=== PATIENT | male | born 1960 | race Caucasian/White ===

== ENCOUNTER → 2022-09-20 11:04 | Outpatient (REF) | payer BC, SELFPAY ==
[2022-09-20 12:40] LABS: ALT (SGPT) 24 U/L (0-50); AST (SGOT) 21 U/L (17-59); Albumin 4.3 g/dl (3.5-5.0); Alkaline Phosphatase 98 U/L (38-126); Blood Urea Nitrogen 23 mg/dl (9-20); Calcium 9.4 mg/dl (8.4-10.2); Carbon Dioxide 26 mmol/L (22-30); Chloride 105 mmol/L (98-107); Glomerular Filtration Rate > 60.0; Glucose 157 mg/dl (65-99); HDL Cholesterol 50 mg/dl; LDL Cholesterol, Calculated 132 mg/dl; Potassium 4.5 mmol/L (3.5-5.1); Sodium 141 mmol/L (135-145); Total Bilirubin 0.5 mg/dl (0.2-1.3); Total Cholesterol 223 mg/dl (50-199); Total Protein 7.3 g/dl (6.3-8.2); Triglyceride 208 mg/dl (10-149); Very Low Density Lipoprotein 41 mg/dl (0-30)
[2022-09-20 14:40] LABS: Glycohemoglobin (HgbA1c) 8.4 % (4.0-5.6)
[2022-09-21 14:53] LABS: PSA Total 0.4 ng/mL (0.0-4.0)
== END ==
LOC: REG 11:04
PROVIDERS: ATTENDING PHYSICIAN Family Medicine; FAMILY PHYSICIAN Nurse Practitioner
DX: I25.10 Atherosclerotic heart disease of native coronary artery without angina pectoris (principal); I21.4 Non-ST elevation (NSTEMI) myocardial infarction; I25.708 Atherosclerosis of coronary artery bypass graft(s), unspecified, with other forms of angina pectoris; I10 Essential (primary) hypertension; E78.5 Hyperlipidemia, unspecified; E11.59 Type 2 diabetes mellitus with other circulatory complications; N93.9 Abnormal uterine and vaginal bleeding, unspecified
CPT/HCPCS: 36415; 80053; 80061; 83036; 84153; 84154

== ENCOUNTER 2023-11-29 17:09 | Inpatient (IN) | payer BC, SELFPAY ==
[2023-11-29] VITALS (15 sets, daily range): BP systolic 84–126; BP diastolic 62–94; BMI 36.0; BMI 36.9
[2023-11-29 14:10] LABS: % Eosinophils 1.4 % (0-6); % Immature Granulocytes 0.3 % (0-0.5); % Lymphocytes 15.3 % (20.5-51.1); % Monocytes 7.5 % (1.7-9.3); % Neutrophils 74.5 % (42.2-75.2); Absolute Basophils 0.1 10^3/uL (0-0.2); Absolute Eosinophils 0.1 10^3/uL (0-0.7); Absolute Lymphocytes 1.3 10^3/uL (1.2-3.4); Absolute Monocytes 0.7 10^3/uL (0.1-0.6); Absolute Neutrophils 6.5 10^3/uL (1.4-6.5); Hematocrit 37.7 % (39.0-52.0); Hemoglobin 12.6 g/dL (13.0-18.0); Mean Corp Hgb Conc. 33.4 g/dL (33.0-37.0); Mean Corpuscular Volume 86.7 fL (80.0-94.0); Mean Platelet Volume 11.1 fL (7.4-10.4); Nucleated Red Blood Cells % 0 % (-); Platelet Count 184 10^3/uL (130-400); Red Blood Cell Count 4.35 10^6/uL (4.70-6.10); Red Cell Dist. Width 14.6 % (11.5-14.5); White Blood Cell Count 8.7 10^3/uL (4.8-10.8)
[2023-11-29 14:15] LABS: INR 1.16; PT 14.8 Sec (11.4-14.6)
[2023-11-29 14:22] LABS: ALT (SGPT) 20 U/L (0-50); AST (SGOT) 23 U/L (17-59); Albumin 4.5 g/dl (3.5-5.0); Alkaline Phosphatase 78 U/L (38-126); Blood Urea Nitrogen 26 mg/dl (9-20); Calcium 9.7 mg/dl (8.4-10.2); Carbon Dioxide 26 mmol/L (22-30); Chloride 102 mmol/L (98-107); Glucose 132 mg/dl (70-99); Potassium 4.8 mmol/L (3.5-5.1); Sodium 139 mmol/L (135-145); Total Bilirubin 0.5 mg/dl (0.2-1.3); Total Protein 7.2 g/dl (6.3-8.2); eGFR > 60.00
[2023-11-29 14:33] LABS: Troponin I 0.095 ng/ml
--- NOTE | 2023-11-29 14:54 | ED.GENMED ---
History of Present Illness
General
Chief Complaint: Chest Pain
Time Seen by Provider: 11/29/23 14:39
Travel History
Have you had any contact with someone who has COVID-19?: No
Do you have any symptoms of coronavirus? Fever > 100 degrees, chills, cough, shortness of breath, sore throat, loss of taste or smell, muscle aches, or headache?: No
History of Present Illness
History of Present Illness:
62-year-old male with extensive history of coronary artery disease and complex coronary anatomy presents to the emergency department for evaluation of chest pain that developed initially yesterday but worsened today while doing yard work. Describes
as a pressure radiating to the right arm that is somewhat comparable to his past bouts of angina but not as severe. Patient has had numerous cardiac stents and CABG x 4 in 2004 with subsequent bypass and in-stent stenosis, most recently he
underwent cardiac cath at this facility in January 2023 and due to the complexity of his restenosis was referred to the emergency [place] where he underwent a repeat CABG x 2. He states he has been doing quite well since that surgery last summer
and has not required any nitroglycerin however did have to use it multiple times today. No fevers, chills, shortness of breath. He has been compliant with all of his home medications
Past History
Past History
ED Past Medical History: CAD (CABG, multiple stents (up to 14)), HTN, Hypercholesterolemia, NIDDM, MO and Other (Pulmonary embolus with IVC filter 2007)
ED Past Surgical History: Cardiac (CABG x4 2004, multiple PCI last occurring October 2018), Orthopedic and Other (IVC filter 2007)
Social History
Tobacco: Smoker
Alcohol: Occasional
Drug: None
Personal:
Living: with family
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
Family History
Family History: CAD
Review of Systems
Review of Systems
Allergies reviewed?: Yes
All Other Systems: ROS reviewed and negative except as documented in HPI and ROS
Phy Exam
Physical Exam
Physical Exam:
GEN: Well appearing, NAD, WDWN
HEENT: Oral mucosa moist, no scleral icterus
Cardiac: Regular rate and rhythm, no murmurs
Lung: No respiratory distress, no tachypnea, lungs clear to auscultation bilaterally
MSK: No gross deformity or injuries
Skin: Good color, no pallor or jaundice, no rashes
Neuro: AO x3, moves all extremities freely
Psych: Calm, cooperative
Scores
Heart Score for Chest Pain Patients
STEMI patient?: No
History: Highly Suspicious
ECG: Normal
Age: >45 - <65 years
Risk Factors: >/= 3 Risk Factors or History of CAD
Troponin: >/= 3 x Normal Limit
Heart Score for Chest Pain Patients: 7
Heart Score Risk: 72.7 % MACE over next 6 weeks
Course
Orders/Labs/Results
Orders:
Orders
11/29/23 13:39
Electrocardiogram (*1) Urgent
Reason for Study: Chest Pain
EKG- Treatment ONCE
11/29/23 13:54
Complete Blood Count/With Diff Urgent
Comprehensive Metabolic Panel Urgent
Prothrombin Time Urgent
Troponin I Urgent
11/29/23 14:50
Aspirin Chewable [Low Strength Aspirin] 243 mg PO NOW STA
Morphine Sulfate 4 mg IV NOW STA
11/29/23 15:00
Nitroglycerin 100 mg/250 ml [Nitroglycerin Premix] 100 mg in 250 ml IV PER PROTOCOL
Initial dose in mcg/min, then titrate:: 10
Titrate to keep:: Chest Pain Free
Titrate by mcg/min:: 5 mcg/min, may increase by 10 mcg/min if dose > 20 mcg/min
Frequency of titrations (minutes):: every 3-5 minutes
Maximum dose in mcg/min:: 200
Begin to taper infusion when:: Remained at goal for 2hrs
Taper by mcg/min:: 5 mcg/min
Frequency of taper (minutes) if patient maintains goal:: 30
Taper to off?: Yes
If infusion off & no longer maintaining goal:: Contact Provider
11/29/23 15:34
PTT Urgent
Comment: Obtain baseline before beginning heparin infusion if not already collected
Heparin 4,000 units IV NOW STA
Pharmacy Request to Place See Dose Instructions PO NOW STA
Discontinue all Active Warfarin orders?: Yes
Nursing to Place Non Medication Order As Directed
Physician Order: PTT 6 hours after initial start of Heparin infusion
CR Chest Portable - 1 View Urgent
Comment:
Reason For Exam: chest pain
Reason Study Needs to be Portable: Other
11/29/23 15:45
Heparin 21927 Units/250 ml 25,000 units in 250 ml IV PER PROTOCOL
Weight to be used for heparin protocol in kilograms (kg):: 117.1
Protocol:: Cardiac Tx/Acute Coronary
PTT Goal Range to be used:: PTT 73 to 111 seconds
Order type:: Initial
INITIAL Infusion Dose (UNITS/KG/hr) & then follow protocol:: 15 units/kg/hr
Infusion Dose in UNITS/hr & then follow protocol (UNITS/hr):: 1,500
INFUSION RATE in mL/hr & then follow protocol (mL/hr):: 15
PTT less than or equal to 64 seconds:: Increase rate by 200 units/hr (+ 2 mL/hr)
PTT 64.1 to 72.9 seconds:: Increase rate by 100 units/hr (+ 1 mL/hr)
PTT 73 to 111 seconds:: Target Range. No change in rate.
PTT 111.1 to 130.9 seconds:: Decrease rate by 100 units/hr (- 1 mL/hr)
PTT 131 to 199.9 seconds:: HOLD for 1 hr. Then decrease rate by 200 units/hr (- 2 mL/hr)
PTT greater than or equal to 200 seconds:: HOLD for 2 hrs & Notify Provider. Then decrease by 200 units/hr (-
2 mL/hr)
Lab follow-up:: Each change, PTT q6h until 2 consecutive are therapeutic. Then PTT
daily.
11/29/23 16:[address] See Dose Instructions IV DIRECTED
Abnormal Lab Results
11/29/23
13:54
RBC 4.35 L 10^6/uL
(4.70-6.10)
Hgb 12.6 L g/dL
(13.0-18.0)
Hct 37.7 L %
(39.0-52.0)
RDW 14.6 H %
(11.5-14.5)
MPV 11.1 H fL
(7.4-10.4)
Absolute Monos (auto) 0.7 H 10^3/uL
(0.1-0.6)
Lymphocytes % 15.3 L %
(20.5-51.1)
PT 14.8 H Sec
(11.4-14.6)
BUN 26 H mg/dl
(9-20)
Glucose 132 H mg/dl
(70-99)
Troponin I 0.095 H* ng/ml
11/29/23 13:54
11/29/23 13:54
Vital Signs
Initial and Last Documented VS:
Initial Vital Signs
Temp Pulse Resp BP Pulse Ox
98.1 F 79 18 115/84 98
11/29/23 13:40 11/29/23 13:40 11/29/23 13:40 11/29/23 13:40 11/29/23 13:40
Last Documented Vital Signs
Temp Pulse Resp BP Pulse Ox
98.1 F 74 23 126/90 98
11/29/23 13:40 11/29/23 15:15 11/29/23 15:15 11/29/23 15:05 11/29/23 13:40
MDM/Problems Addressed
MDM/Problems Addressed:
Cardiology was consulted for emergent evaluation due to the patient's complex coronary history, recommend admission to the hospitalist service for cardiac intervention tomorrow morning, patient remained stable on nitroglycerin and heparin drips with
improving chest symptoms
Comment
Comment:
EKG independently interpreted by me shows normal sinus rhythm at a rate of 77 with no ischemic changes, chest x-ray independently interpreted by me shows no acute cardiopulmonary disease
*Critical Care Note
Total Time (30-74mins, 75-104mins- exclusive of procedures): 30 minutes
comment:
Critical care time: 30 minutes
Critical care time was exclusive of: Separately billable procedures, treating other patients, and teaching time
Critical care was necessary to treat or prevent imminent or life-threatening deterioration of the following conditions: NSTEMI
Critical care time spent personally by me on the following activities:
[x] Review of old charts
[x] Obtaining history from patient or surrogate
[x] Ordering and review of the laboratory studies
[x] Ordering and review of radiographic studies
[x] Ordering and performing treatments and interventions
[x] Patient patient's response to treatment
[x] Development of treatment plan with patient or surrogate
ED Attending Note
-
Portions of this chart may have been created with voice recognition software.� Occasional wrong word or��sound alike� substitutions may have occurred due to the inherent limitations of voice recognition software.
Discharge Plan
Departure
Patient Disposition: Admit
Date of Disposition: 11/29/23
Time of Disposition: 16:42
Admit to: IVU
Presentation/result/management discussed w/ accepting MD/DO: Hospitalist
Discharge Problem:
Non-ST elevation MO (NSTEMI)
Prescriptions:
No Action
clopidogrel 75 MG tablet
75 mg PO DAILY Qty: 30 11RF
atorvastatin 80 MG tablet
80 mg PO DAILY
aspirin 81 MG tablet,chewable
81 mg PO DAILY Qty: 30 3RF
therapeutic multivitamin Tablet
1 tab PO DAILY
omeprazole 20 mg Tablet,Delayed Release (Dr/Ec)
20 mg PO DAILY
metformin 500 MG tablet
1,000 mg PO BID@0800,1700
ezetimibe 10 MG tablet
10 mg PO HS
amlodipine 5 mg tablet
5 mg PO DAILY
insulin glargine [Lantus U-100 Insulin] 100 unit/mL Solution
20 unit SC HS
amiodarone 200 mg Tablet
200 mg PO DAILY
carvedilol 3.125 mg Tablet
3.125 mg PO BID Qty: 60 0RF
lisinopril 40 mg tablet
40 mg PO DAILY
hydrocodone-acetaminophen 5-300 mg Tablet
1 tab PO BIDPRN PRN (Reason: severe pain)
pregabalin 100 mg capsule
100 mg PO BID
Referrals:
Aury Cervantes DO [Family Provider] -
Interventions
Interventions:
ED- Cardiac Assessment Last Done: 11/29/23 15:20
Discharge Date and Time
Print Language: SINHALA
[2023-11-29] MEDS: LOW STRENGTH ASPIRIN 243 MG PO (15:15)
[2023-11-29] MEDS: MORPHINE SULFATE 4 MG IV (15:15)
[2023-11-29] MEDS: NITROGLYCERIN PREMIX 250 IV (15:19)
--- NOTE | 2023-11-29 15:32 | CON.CAR ---
Addendum entered and electronically signed by Massiel Bridges MD 11/29/23 17:49:
I saw and examined the patient.
The Astronautical Engineer's note was reviewed and I agree with the note.
Comment: Mr Mcfadden is a 62-year-old gentleman with an extensive history of coronary artery disease including multiple coronary stents at [facility], subsequent CABG x4 vessels at [facility] in 2004 with a
RIQI-KXY-bzancqqz and free radial bzzgm-tfmoptcwwf-VGJ, subsequent angiography in 2008 demonstrating 100% occlusion of the sequential free radial graft confirmed on another angiogram from 2012, [place] [facility] [place]
while living in [place], and at [facility].� In October 2018 he presented to [facility] with ACS and the RCA was extensively stented with proximal in-stent restenosis and a 3.5 x 32 mm Promus stent was implanted
(postdilated to high pressures with a 4.0 mm NC balloon). He then returned in March 2019 with recurring chest pain and the stents were found to be widely patent and again in May 2021 with NSTEMI.� [facility] in 2020 at that time was notable for
recurring high-grade mid RCA in-stent restenosis that was treated with a 3.5 x 33 mm Xience stent that was postdilated with a 3.5 x 20 mm NC balloon.� He developed recurring in-stent restenosis 03/2022 and balloon angioplasty, Shockwave intravascular
lithotripsy of the mid RCA and re-stenting with a 3.5 x 38 mm Xience stent that was post dilated with a 3.75 mm NC balloon to 20 atmospheres. Then, in January 2023, he returned with recurring chest discomfort and had been taking over a dozen SLNTG
during the day and at night, albeit with negative troponin levels and underwent a repeat heart catheterization via left common femoral arterial access showing recurring mid RCA in-stent restenosis with multiple layers of stents throughout the RCA.
Restenosis had occurred at the site of shockwave lithotripsy, balloon angioplasty and re-stenting of the mid right coronary artery from 03/2022. PYEC-[id number] was patent with severe [place] vessel coronary disease in the circumflex distribution
which is stable since the last angiogram from 03/2022. After the cath in January 2023 with multiple heart team discussions with limited options patient was then referred to [facility] to undergo a redo CABG by Doctor Rajesh Ambrose which she
had in January 2023 with a resulting SVG of aorta to RPDA and RPLB on February 01, 2023. He had been doing well until about a month ago since when he has been feeling increasing fatigue and started appreciating anginal symptoms recurrently since yesterday
after he dug a hole. His symptoms resolved yesterday and recurred again this morning resulting in him taking 3 sublingual nitroglycerin with improvement in pain which brought him to the emergency department.
Vital signs reviewed. Lab work reviewed with for troponin at 0.9. ECG with no acute ischemic changes. Exam is notable for a obese gentleman in no acute distress, awake and alert, oriented x 3, regular rate, normal S1 and S2, no murmurs, rubs or
gallops, lungs are clear to auscultation bilaterally, abdomen is soft, nontender, nondistended with active bowel sounds and warm extremities. Patient is on nitroglycerin drip currently at 20 mcg an hour started in the emergency department. He
reports compliance with all his medications including dual antiplatelet therapy with daily baby aspirin and Plavix 75 mg daily. 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
Recommendations:
1. Treat for presumed NSTEMI with daily baby aspirin, continued Plavix, high intensity statin, beta-nate, IV heparin drip and continue IV nitroglycerin drip for now.
2. Trend troponins and EKGs.
3. N.p.o. after midnight for left heart catheterization tomorrow. No contrast dye allergy history.
4. Repeat echocardiogram to reassess left ventricular function.
5. Monitor closely on telemetry
Massiel Bridges MD, [facility], [facility]
Original Note:
Consultation
Consultation Request
Date/Time Consultation Performed: 11/29/23
Requesting Provider: Luisito Vasquez PA-C
Performing Provider: Lamar Hyde PA-C for Dr. Bridges
Reason for Consultation: CP
Medical History
-
Chief Complaint: CP
History of Present Illness:
Patient is a 62 yo M well known to us with past medical history of significant CAD with multiple stents with subsequent in-stent stenosis, history of CABG x 4 in 2004, most recently referred to [place] and had repeat CABG x 2 [address] Doctor Rajesh Ambrose
01/2023. He reports postoperatively he had initially felt very well. He states until yesterday he really has not had any significant chest discomfort. He states before his repeat bypass surgery he had significant chest discomfort and bilateral arm
pain. He reports yesterday he was digging a hole. He states he began to develop B/L arm soreness followed by chest pressure. He stopped and sat down and the feeling passed. Today he was picking up sticks in his yard and developed bilateral arm
soreness followed by heavy chest pressure, mostly left-sided. He took 3 sublingual nitro and it initially subsided, however recurred 20 to 25 minutes later. He reports it is improved however not gone, rating the pressure a 2 out of 10 at present.
He also states over the last month he has noticed his stamina has not been as good and that he is 'slowing down again'. He states he was recently seen by PCP and diabetic numbers and lipids were improved compared to prior. He states he has been 100%
compliant with his medications. He states he has really been trying with his diet, however has not been perfect. Troponin 0.095. Cardiology consulted for evaluation.
PMH:
CAD
multiple prior PCI [facility] ABDUL
CABG x4 with 2 proximal anastomosis (RIOS-LAD-D and Free [place]-NVJ [100% occluded])� in 2004 at [facility]
s/p PCI of RCA 11/09/18
Cath 03/2019 with severe [place] 3 vessel disease, patent RIOS to D3 to LAD, patent RCA stent, occluded radial to LCx/PDA, medically managed
s/p RCA PCI 05/2021
s/p NSTEMI, cath with restenosis of RCA s/p placement of multiple overlapping stents 03/2022
s/p CABG at [facility] with SVG off aorta to PDA and R PLB 02/01/23
Paroxysmal Afib, seen post-op CABG 01/2023
HTN
Hyperlipidemia
DM 2
PE s/p IVC filter in 2007
Tobacco use
History of medical/dietary noncompliance
Obesity
Past Medical History
Past Medical History: Other (in HPI)
Social History
Personal:
Living: With Family
Employment: Employed
Family History
Family History: Early CAD (His father had CABG in his 40s, brother had CT in his 50s and has an ICD.)
Allergies / Home Medications
Allergy/AdvReac Type Severity Reaction Status Date / Time
ketorolac [From Toradol] Allergy Rash/renal Verified 09/01/23 16:08
failure
�Medication �Instructions �Recorded �Confirmed �Type
clopidogrel 75 mg tablet 75 mg PO DAILY #30 tabs 11/09/18 11/29/23 Rx
atorvastatin 80 mg tablet 80 mg PO DAILY High cholesterol 03/20/19 11/29/23 History
aspirin 81 mg chewable tablet 81 mg PO DAILY ##30 03/22/19 11/29/23 Rx
therapeutic multivitamin 1 tab PO DAILY Supplement 04/03/22 11/29/23 History
metformin 500 mg tablet 1,000 mg PO BID@0800,1700 diabetes 01/18/23 11/29/23 History
omeprazole 20 mg tablet,delayed 20 mg PO DAILY Gastrointestinal 01/18/23 11/29/23 History
release Issue
ezetimibe 10 mg tablet 10 mg PO HS High Cholesterol 01/20/23 11/29/23 History
amiodarone 200 mg tablet 200 mg PO DAILY Arrhythmia 05/21/23 11/29/23 History
amlodipine 5 mg tablet 5 mg PO DAILY Blood Pressure 05/21/23 11/29/23 History
insulin glargine 100 unit/mL 20 unit SC HS diabetes 05/21/23 11/29/23 History
subcutaneous solution (Lantus
U-100 Insulin)
carvedilol 3.125 mg tablet 3.125 mg PO BID #60 tabs 05/23/23 11/29/23 Rx
lisinopril 40 mg tablet 40 mg PO DAILY blood pressure 09/02/23 11/29/23 History
hydrocodone 5 mg-acetaminophen 300 1 tab PO BIDPRN PRN severe pain 11/29/23 11/29/23 History
mg tablet
pregabalin 100 mg capsule 100 mg PO BID 11/29/23 11/29/23 History
Review of Systems
-
History Source: Patient
All other systems: Negative unless noted
Physical Exam
Vital Signs
Temp Pulse Resp BP Pulse Ox
98.1 F 74 23 126/90 98
11/29/23 13:40 11/29/23 15:15 11/29/23 15:15 11/29/23 15:05 11/29/23 13:40
Lab Results
11/29/23 13:54
11/29/23 13:54
Troponin I 0.095 ng/ml H* 11/29/23 13:54
Physical Exam
General: No Apparent Distress, Comfortable and Other (obese)
HEENT: Normocephalic, Anicteric and Moist Mucous Membranes
Respiratory: Clear and Non Labored Respirations
Cardiac: S1/S2 and Regular Rhythm
GI: Soft, Non Tender, Non Distended and Normal Bowel Sounds
Musculoskeletal: No Clubbing, No Cyanosis and No Edema
Skin: Warm and Dry
Neuro: AO x 3
Impression / Plan
-
Primary Footwear Machinery Instructor: Dr. Montoya
Assessment:
Presentation with exertional chest and arm discomfort
Elevated troponin
CAD
multiple prior PCI [facility] PA
CABG x4 with 2 proximal anastomosis (RIOS-LAD-D and Free Jfygdl-TZ-BCL [100% occluded])� in 2004 at [facility]
s/p PCI of RCA 11/09/18
Cath 03/2019 with severe [place] 3 vessel disease, patent RIOS to D3 to LAD, patent RCA stent, occluded radial to LCx/PDA, medically managed
s/p RCA PCI 05/2021
s/p NSTEMI, cath with restenosis of RCA s/p placement of multiple overlapping stents 03/2022
s/p CABG at [facility] with SVG off aorta to PDA and R PLB 02/01/23
Paroxysmal Afib, seen post-op CABG 01/2023
HTN
Hyperlipidemia
DM 2
Diabetic neuropathy
PE s/p IVC filter in 2007
Tobacco use
History of medical/dietary noncompliance
Obesity
ECHO 05/22/23: EF 50%, trace MR, mild TR, PAP 28 mmHg, trace TN
Plan:
-Patient with complex past cardiac history as above presents back to [facility] due to chest discomfort, concern for angina
-records from [place] admission 01/24-02/06/23 reviewed
-Initial troponin 0.095. Trend to peak
-Continue IV nitro, currently @15, being uptitrated. States he remains with 2 out of 10 chest discomfort at this time.
-continue IV heparin
-EKG SR without acute ST abnormalities
-would tentatively plan for cath in AM. NPO after midnight
-continue OP asa, plavix, lipitor, coreg, norvasc, amiodarone, lisinopril
Data Reviewed
-
EKG: Tracing Personally Visualized and interpreted
Medical Tests (Nuc Med, Echo etc): Report Reviewed by me
Labs: Labs Reviewed by me
Old Records: Reviewed
--- NOTE | 2023-11-29 17:05 | HPS.HSE ---
Family Physician
-
Family Physician: Aury Cervantes
Chief Complaint
-
Chest pain
History of Present Illness
62-year-old male with tensive cardiac history including CABG, PCI, hypertension, hyperlipidemia, diabetes, PE status post IVC filter now presenting for significant chest discomfort. Recent CABG x 2 on 02/09. Patient began to have bilateral arm
soreness followed by chest pressure during digging a hole yesterday. This was somewhat similar to his symptoms prior to CABG in 2022. Patient's chest pressure resolved after sitting down. Patient was picking up sticks today and once again
developed bilateral arm soreness with heavy chest pressure, left-sided mostly. Patient symptoms improved with sublingual nitro although refractory to this 20 to 25 minutes afterwards. Patient states this is pressure-like, 2 out of 10 in intensity.
Patient is compliant with medications, somewhat adjusting to diet. Blood pressures 115/84 upon presentation, slightly lower not on nitro drip. Pulse in the 70s, respiratory rate 17, saturating 95% on room air. Labs remarkable for troponin
0.0957, x-ray with no acute disease. Cardiology consulted. Started on nitro and heparin drip.
Medical History
Past Medical History
Past Medical History: Reports Other
Additional Past Medical History:
CAD
HTN
HLD
DM
PE
Past Surgical History: Reports Other
Additional Past Surgical History:
CABG x2, stents x14
IVC filter
Social History
Tobacco: Other (chews tobacco)
Alcohol: None
Drug: None
Personal:
Living: With Family
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
Family History
Family History: Not pertinent
Allergies / Home Medications
Allergies reflects when Allergies were last updated in [facility].
Home Medications with original date entered in [facility]
Allergy/Medication List:
Allergies
Allergy/AdvReac Type Severity Reaction Status Date / Time
ketorolac [From Toradol] Allergy Rash/renal Verified 09/01/23 16:08
failure
Home Medications
clopidogrel 75 mg tablet 75 mg PO DAILY #30 tabs 11/09/18
atorvastatin 80 mg tablet 80 mg PO DAILY High cholesterol 03/20/19
aspirin 81 mg chewable tablet 81 mg PO DAILY ##30 03/22/19
therapeutic multivitamin 1 tab PO DAILY Supplement 04/03/22
metformin 500 mg tablet 1,000 mg PO BID@0800,1700 diabetes 01/18/23
omeprazole 20 mg tablet,delayed release 20 mg PO DAILY Gastrointestinal Issue 01/18/23
ezetimibe 10 mg tablet 10 mg PO HS High Cholesterol 01/20/23
amiodarone 200 mg tablet 200 mg PO DAILY Arrhythmia 05/21/23
amlodipine 5 mg tablet 5 mg PO DAILY Blood Pressure 05/21/23
insulin glargine 100 unit/mL subcutaneous solution (Lantus U-100 Insulin) 20 unit SC HS diabetes 05/21/23
carvedilol 3.125 mg tablet 3.125 mg PO BID #60 tabs 05/23/23
lisinopril 40 mg tablet 40 mg PO DAILY blood pressure 09/02/23
hydrocodone 5 mg-acetaminophen 300 mg tablet 1 tab PO BIDPRN PRN severe pain 11/29/23
pregabalin 100 mg capsule 100 mg PO BID 11/29/23
Review of Systems
-
History Source: Patient
A 12 point ROS was completed and negative except as noted: Yes
Physical Exam
Vital Signs
Vital Signs
Temp Pulse Resp BP Pulse Ox
98.1 F 70 17 102/73 95
11/29/23 13:40 11/29/23 17:00 11/29/23 17:00 11/29/23 17:00 11/29/23 17:00
Physical Exam
General: Well Developed, Well Nourished, No Apparent Distress and Obese
HEENT: NormoCephalic and Anicteric
Respiratory: Clear
Cardiac: S1/S2 and Regular Rhythm
GI: Soft and Non Tender
Musculoskeletal: No Clubbing
Skin: Warm
Neuro: Awake, Alert, Oriented and AO x 3
Hematologic/Lymphatic: No Lymphadenopathy
Psych: Calm
Laboratory Results
-
11/29/23 13:54
11/29/23 13:54
Laboratory Results
PT 14.8 Sec (11.4-14.6) H 11/29/23 13:54
INR 1.16 11/29/23 13:54
Total Bilirubin 0.5 mg/dl (0.2-1.3) 11/29/23 13:54
AST 23 U/L (17-59) 11/29/23 13:54
ALT 20 U/L (0-50) 11/29/23 13:54
Alkaline Phosphatase 78 U/L (38-126) 11/29/23 13:54
Troponin I 0.095 ng/ml H* 11/29/23 13:54
Data Reviewed
-
Diagnostic Radiology: Image Personally Visualized and interpreted and Report Reviewed by me
Lab Data: Labs Reviewed by me
Impression/Plan
-
IMPRESSION:
62-year-old male with extensive cardiac history now presents for stable angina
#Chest pain
#NSTEMI
� Continue trending troponins until peak
� Cardiology consulted
� Continue IV nitroglycerin, titrate as needed
� Continue heparin drip
� Monitor EKGs
� Continue aspirin, Plavix, Lipitor, Coreg, Norvasc, lisinopril
� Follow-up echo
� Plan for cardiac cath tomorrow
� N.p.o. at midnight
History of complex CAD status post CABG x2, stents x14
- continue Coreg, statin, DAPT with aspirin and Plavix, ACEI
-see plan above
Paroxysmal atrial fibrillation
- continue Coreg/Amiodarone
- not on AC - defer to cards
History of pulmonary embolism with IVC filter in place ( 2007). Symptoms not c/w PE
#Type 2 diabetes baseline
- 1/2 dose Lantus tonight as NPO
-AISS
- resume metformin at discharge.
Hypercholesterolemia, stable
- continue Zetia, statin
Neuropathy. Unchanged
- Continue pregabalin
DVT ppx: Heparin ggt
Code: Full
[2023-11-29 17:09] LABS: APTT 30.3 Sec (23.4-35.0)
[2023-11-29] MEDS: HEPARIN 4000 UNITS IV (17:21)
[2023-11-29] MEDS: HEPARIN 25000 UNITS/250 ML IV (17:24)
--- NOTE | 2023-11-29 20:30 | PTCARENOTE ---
assumed care of pt from previous shift RN, sinus rhythm on tele w 1st degree HB, BBB. + peripheral pulses, no edema noted. Pt w persistant 1/10 'chest pressure' which he states is improved from admission. Lungs diminished, pox 95% on RA. +bs,
tolerating PO intake, voids spontaneously. PIV x2 flush easily. Admission interview questions completed. Plan of care reviewed w the pt and questions encouraged.
DRIPS: Heparin 1500 units/hr
Nitroglycerin 20mcg/min
[2023-11-29] MEDS: COREG PO (21:25)
--- NOTE | 2023-11-29 21:25 | PTCARENOTE ---
bp 88/65. Pt is ordered coreg 3.125. Contacted Dr. Urias who instructed to hold coreg dose tonight.
[2023-11-29] MEDS: LYRICA 100 MG PO (21:34)
[2023-11-29] MEDS: ZETIA 10 MG PO (21:34)
[2023-11-29 22:48] LABS: Glucose - Point of Care 203 mg/dl (70-99)
[2023-11-29 23:06] LABS: APTT 92.8 Sec (23.4-35.0)
[2023-11-29] MEDS: ROXICODONE 5 MG PO (23:12)
[2023-11-29] MEDS: LANTUS 0.100000000000000006 UNITS SC (23:12)
[2023-11-29 23:22] LABS: Troponin I 0.358 ng/ml
[2023-11-30] VITALS (18 sets, daily range): BP systolic 99–160; BP diastolic 61–92; PULSE 57; O2SAT 95–96
[2023-11-30] MEDS: MORPHINE SULFATE 2 MG IV ×4 (00:15→15:48)
[2023-11-30 04:43] LABS: Hematocrit 29.8 % (39.0-52.0); Mean Corp Hgb Conc. 32.9 g/dL (33.0-37.0); Mean Corpuscular Hgb 29.1 pg (27.0-31.0); Mean Corpuscular Volume 88.4 fL (80.0-94.0); Mean Platelet Volume 11.6 fL (7.4-10.4); Platelet Count 141 10^3/uL (130-400); Red Blood Cell Count 3.37 10^6/uL (4.70-6.10); Red Cell Dist. Width 14.9 % (11.5-14.5); White Blood Cell Count 7.8 10^3/uL (4.8-10.8)
[2023-11-30 04:46] LABS: Hemoglobin 9.8 g/dL (13.0-18.0)
[2023-11-30 04:53] LABS: APTT 102.6 Sec (23.4-35.0)
[2023-11-30 05:06] LABS: Blood Urea Nitrogen 26 mg/dl (9-20); Calcium 7.5 mg/dl (8.4-10.2); Carbon Dioxide 25 mmol/L (22-30); Chloride 106 mmol/L (98-107); Estimated Creatinine Clearance 84 ml/min; Glucose 148 mg/dl (70-99); Magnesium 1.4 mg/dl (1.6-2.3); Potassium 3.6 mmol/L (3.5-5.1); Sodium 136 mmol/L (135-145); eGFR > 60.00
[2023-11-30 07:50] LABS: Glucose - Point of Care 123 mg/dl (70-99)
[2023-11-30] MEDS: COREG 3.125 MG PO ×2 (08:53→20:45)
[2023-11-30] MEDS: NORVASC 5 MG PO (08:54)
[2023-11-30] MEDS: PLAVIX 75 MG PO (08:54)
[2023-11-30] MEDS: LIPITOR 80 MG PO (08:54)
[2023-11-30] MEDS: PROTONIX 40 MG PO (08:54)
[2023-11-30] MEDS: LYRICA 100 MG PO ×2 (08:54→20:45)
[2023-11-30] MEDS: ZESTRIL 40 MG PO (08:54)
[2023-11-30] MEDS: LOW STRENGTH ASPIRIN 81 MG PO (08:54)
[2023-11-30] MEDS: PACERONE 200 MG PO (08:55)
[2023-11-30] MEDS: THERAGRAN 1 TABLET PO (08:55)
--- NOTE | 2023-11-30 09:27 | CM ---
Reviewed chart. Met with Mr. Mcfadden to review discharge plans. HE states prior to admission he resides with his spouse and children in a two story home with three steps to enter. He states his bedroom/full bathroom is on the first floor. He states
prior to admission he was independent with ambulation and adls. He states he does not have any DME in the home. He states he has a prescription plan. Medical work-up in progress. The discharge plan is to return home with his spouse and children
when medically stable
--- NOTE | 2023-11-30 09:33 | PTOTSP ---
Patient demonstrates safe and independent mobility, no skilled physical therapy needs at this time.
--- NOTE | 2023-11-30 09:40 | PTCARENOTE ---
walking rounds completed, patient has ongoing c/o headache, medicated by previous RN. IV nitroglycerin @ 20mcg and IV heparin @ 1500units/hr. patient remains NPO for Echo and heart cath this am.
[2023-11-30 09:58] LABS: Glycohemoglobin (HgbA1c) 7.3 % (4.0-5.6)
[2023-11-30 10:07] LABS: Troponin I 0.131 ng/ml
--- NOTE | 2023-11-30 10:30 | CARDSERVLU ---
Echocardiogram with Lumason completed after protocol screening completed. Allergies verified.
Patent IV site: ____Rt hand_
IV site flushed with 0.9% NaCl pre and post administration.
Diluted bolus method utilized to enhance visualization of ventricular caba.
Total volume given: __4.0__ mL
Patient tolerated all procedures well without complications.
[2023-11-30] MEDS: FLUSH (NSS) 1 FLUSH IV (10:47)
--- NOTE | 2023-11-30 10:50 | PTCARENOTE ---
patient c/o severe headache, from IV Nitro. morphine IV given as ordered.
--- NOTE | 2023-11-30 10:55 | PTCARENOTE ---
Echo completed at bedside.
--- NOTE | 2023-11-30 11:39 | PTCARENOTE ---
Hgb 9.2 this am, hospitalist and Dr. Case aware. Dr. Case ordered stat H/H, drawn and sent to lab.
[2023-11-30 11:50] LABS: Hematocrit 35.5 % (39.0-52.0); Hemoglobin 11.6 g/dL (13.0-18.0)
--- NOTE | 2023-11-30 12:16 | PTCARENOTE ---
Dr. Case aware of repeat H/H 11.6/35.5
[2023-11-30 12:40] LABS: Glucose - Point of Care 124 mg/dl (70-99)
--- NOTE | 2023-11-30 15:01 | W.PN.HOSP.TC ---
Today's Communication/Plan
-
lhc today
hep ggt, nitro ggt
resume home dose lantus anticipating cath today and can resume diet thereafter
Assessment / Plan
Assessment / Plan
Physical Exam
General: Well Developed, Well Nourished, No Apparent Distress and Obese
HEENT: NormoCephalic and Anicteric
Respiratory: Clear
Cardiac: S1/S2 and Regular Rhythm
GI: Soft and Non Tender
Musculoskeletal: No Clubbing
Skin: Warm
Neuro: Awake, Alert, Oriented and AO x 3
Hematologic/Lymphatic: No Lymphadenopathy
Psych: Calm
62-year-old male with extensive cardiac history now presents for stable angina
#Chest pain
#NSTEMI
� Continue trending troponins until peak
� Cardiology consulted
� Continue IV nitroglycerin, titrate as needed
� Continue heparin drip
� Monitor EKGs
� Continue aspirin, Plavix, Lipitor, Coreg, Norvasc, lisinopril
� Follow-up echo: 50-55% by visual estimate. No gross regional wall motion abnormalities
� Plan for cardiac cath today
� N.p.o.
#headache
-2/2 to nitro
-Tylenol
-hopefully will improved once s /p cath
History of complex CAD status post CABG x2, stents x14
- continue Coreg, statin, DAPT with aspirin and Plavix, ACEI
-see plan above
Paroxysmal atrial fibrillation
- continue Coreg/Amiodarone
- not on AC - defer to cards
#Hypomagnesemia
� Monitor and replete
History of pulmonary embolism with IVC filter in place ( 2007). Symptoms not c/w PE
#Type 2 diabetes baseline
-lantus
-AISS
- resume metformin at discharge.
Hypercholesterolemia, stable
- continue Zetia, statin
Neuropathy. Unchanged
- Continue pregabalin
DVT ppx: Heparin ggt
Code: Full
Total time spent on today's encounter was 50 minutes which included time spent in counseling the patient/family regarding diagnosis and treatment plan as listed above, goals of care, and symptom management. Case was discussed with nursing staff,
specialists, and care coordinators/case management. All labs and imaging personally reviewed by me. Remainder the time spent in detailed review of previous records, lab data, imaging, and other medical provider documentation.
Anticipated Discharge: 24 - 48 hours
Subjective/Interval History
-
Date of Service: November 30, 2023
headache with nitro
Objective Data
-
Labs:
Laboratory Results
11/30/23 11/30/23
03:57 11:37
WBC 7.8
Hgb 9.8 L D 11.6 L
Hct 29.8 L 35.5 L
Plt Count 141 D
APTT 102.6 H
Sodium 136
Potassium 3.6
Chloride 106
Carbon Dioxide 25
BUN 26 H
Creatinine 1.2
Glucose 148 H
Calcium 7.5 L D
Vital Signs:
Vital Signs
Temp Pulse Resp BP Pulse Ox
98.3 F 56 20 106/81 95
11/30/23 12:03 11/30/23 14:00 11/30/23 12:03 11/30/23 12:06 11/30/23 12:06
I&O
11/29/23 11/30/23 12/01/23
06:59 06:59 06:59
Intake Total 118 / 118
Output Total 200 / 200
Balance 118 / 118 -200 / -200
Review of Systems
-
History Source: Patient
All other systems: Not reviewed unless documented
Data Reviewed
-
Total Time Spent with Patient (in minutes): 40
Diagnostic Radiology: Image personally visualized and interpreted and Report Reviewed by me
Labs: Labs Reviewed by me
[2023-11-30] MEDS: MAGNESIUM SULFATE 100 IV (15:52)
[2023-11-30 16:43] LABS: Glucose - Point of Care 98 mg/dl (70-99)
--- NOTE | 2023-11-30 16:43 | PTCARENOTE ---
Assumed pt care at 1500. AOx3, complains of pain, given PRN morphine as ordered. Pt left for lab analyst at 1645, report given to ROMIE.
--- NOTE | 2023-11-30 17:34 | ITS.CL.CATH ---
Supervisor Title - Catheterization
Cardiac Catheterization
Procedure Report:
LEFT HEART CATHETERIZATION
Date of Procedure: November 30, 2023
Referring: Dr. Damir Montoya
PROCEDURES:
1. Left heart catheterization with coronary and single-plane left ventriculography
INDICATION: This is a 62-year-old gentleman with an extensive history of coronary artery disease and multiple coronary stents at [facility] and subsequent coronary artery bypass grafting x 4 vessels at [facility] in
2004 with a QBGN-KGZ-ajszspdr, free radial ssnpt-xwgjoijnsl-SOR. Subsequent angiography in 2008 demonstrated 100% occlusion of the sequential free radial graft confirmed on an angiogram from 2012. He reported additional stents while living in
[place] at [facility], while living in [place], and at [facility]. In October 2018 he presented to [facility] with an acute coronary syndrome in the right coronary artery was extensively stented with proximal in-stent restenosis
with placement of a 3.5 x 32 mm Promus stent. The stent was postdilated with a 4 mm noncompliant balloon. He returned in March 2019 with recurring chest pain and found that the stents were widely patent and again in May 2021 with chest pain
and elevated troponin. Coronary angiography at that time was notable for recurring high-grade mid RCA in-stent restenosis treated with a 3.0 x 33 mm Xience stent that was postdilated with a 3.5 mm noncompliant balloon. He developed recurring
in-stent restenosis in March 2022 and balloon angioplasty with shockwave intravascular lithotripsy of the mid RCA was performed with re-stenting with placement of a 3.5 x 38 mm Xience stent. He presented in January 2022 with recurring chest
discomfort and was referred for coronary angiography finding recurring in-stent restenosis in the RCA that had previously been treated with multiple layers of stent. He was seen in consultation by CT surgery and ultimately referred to [facility] where Dr. Arnol Mena performed a redo sternotomy with placement of a sequential SVG-PDA-PLB. He again did well and returned to normal physical activity. He has been feeling well without chest pain. He was performing fairly strenuous
activity when he developed the onset of recurring chest pain that was reminiscent of his prior anginal symptoms. The symptoms returned during physical exertion the following day and he presented to [facility] emergency room for further
evaluation. His troponin became mildly elevated peaking at 0.358 ng/mL. He is now referred for coronary angiography.
ACCESS: Left common femoral artery, 6 Divehi sheath
HEMODYNAMICS : (mmHg)
AO (s/d) : 163/91
LV (s/d) : 157/12
LVEDP : 20
CORONARY ANGIOGRAPHY
Dominance: Right
LEFT MAIN: Angiographically stable 80-90% distal left main stenosis
LEFT ANTERIOR DESCENDING: The LAD arises normally from the left main and runs in the anterior interventricular groove. There is a stent in the proximal LAD with diffuse in-stent restenosis with the stented segment becoming 100% occluded in the mid
to distal portion of the stent. A small diagonal branch fills just before the LAD is found to be occluded. The distal LAD fills via a widely patent RIOS graft to the diagonal and LAD. There is retrograde filling of the LAD back to the occluded
stent and anterograde filling of the LAD to the apex. The LAD and diagonal branch appears angiographically stable.
CIRCUMFLEX: The circumflex arises normally from the left main and has multiple overlapping proximal and mid stents. The proximal circumflex has a 95% stenosis just before the stented segment. A small OM1 is 100% occluded. OM 2 is small and OM 3
has a 90% stenosis and becomes occluded in the midportion of the stent with the distal vessel filling via a very faint collaterals.
RIGHT CORONARY ARTERY: The right coronary artery is known to have multiple layers of stent and previously had diffuse in-stent restenosis throughout the midportion of the vessel. The right coronary artery is now found to be 100% occluded in its mid
portion with the distal vessel filling via a widely patent sequential saphenous vein graft to the PDA-PLB
GRAFT ANGIOGRAPHY:
1. UDIL-USA-pmbohdmq: The RIOS graft to the mid LAD and diagonal is widely patent. There is retrograde filling of the LAD and antegrade filling of the LAD and diagonal branch. The LAD has moderate diffuse disease but is angiographically unchanged
2. Sequential SVG-PDA-PLB from 01/2023 is widely patent. There is antegrade and retrograde filling of both vessels to the distal RCA.
LEFT VENTRICULOGRAPHY: Left ventriculography is performed in SOTO projection. Digital single-plane left ventricular ejection fraction is estimated at 60%
RADIATION SUMMARY: Fluoro Time (min): 4.5, Dose (mGy): 457.4, DAP (Gy.cm2) : 30.7
Closure Device: 6 Divehi Angio-Seal LFA
CONCLUSION
1. Widely patent VWSL-EHA-tzvojjpl and sequential SVG-PDA-PLB. The right coronary artery is now found to be 100% occluded due to widely patent sequential SVG graft. The terminal obtuse marginal branch from the circumflex is also now noted to be
occluded. Diffuse atherosclerotic disease is noted in the mid circumflex and in the proximal LAD which may also contribute to anginal symptoms.
2. Preserved left ventricular systolic function
RECOMMENDATIONS
1. Continue medical therapy. Needs aggressive control of blood pressure and lipids with goal LDL cholesterol of 55 mg/dL and blood pressure less than 130/80
2. Continue aspirin and clopidogrel
3. Chronically maintained on amiodarone. Wonder if we should discontinue or if there has been a history of atrial fibrillation. However, he is currently not anticoagulated.
Copy to: Dr. Damir Montoya
[2023-11-30] MEDS: TYLENOL 650 MG PO (20:45)
[2023-11-30] MEDS: ZETIA 10 MG PO (20:45)
[2023-11-30 21:06] LABS: Glucose - Point of Care 221 mg/dl (70-99)
[2023-11-30] MEDS: ROXICODONE 5 MG PO (22:27)
[2023-11-30] MEDS: LANTUS 0.200000000000000011 UNITS SC (22:28)
--- NOTE | 2023-11-30 23:53 | PTCARENOTE ---
Pt with 3/10 complaints of a L chest pressure- states that it is the same he had pre-cath. medicated as per OCT. R groin dressing CDI- + pedal pulse. POC discussed- VSS. SR w/ first degree on the monitor.
[2023-12-01 02:07] VITALS: BP 110/76
[2023-12-01] MEDS: MORPHINE SULFATE 2 MG IV (02:14)
[2023-12-01 02:27] LABS: Hematocrit 33.2 % (39.0-52.0); Hemoglobin 11.1 g/dL (13.0-18.0); Mean Corp Hgb Conc. 33.4 g/dL (33.0-37.0); Mean Corpuscular Hgb 29.2 pg (27.0-31.0); Mean Corpuscular Volume 87.4 fL (80.0-94.0); Mean Platelet Volume 11.4 fL (7.4-10.4); Platelet Count 160 10^3/uL (130-400); Red Cell Dist. Width 14.6 % (11.5-14.5); White Blood Cell Count 6.7 10^3/uL (4.8-10.8)
[2023-12-01 02:55] LABS: Blood Urea Nitrogen 27 mg/dl (9-20); Calcium 8.9 mg/dl (8.4-10.2); Carbon Dioxide 27 mmol/L (22-30); Chloride 101 mmol/L (98-107); Estimated Creatinine Clearance 78 ml/min; Glucose 160 mg/dl (70-99); Magnesium 2.5 mg/dl (1.6-2.3); Potassium 4.7 mmol/L (3.5-5.1); Sodium 136 mmol/L (135-145); eGFR > 60.00
[2023-12-01 03:00] LABS: APTT 33.1 Sec (23.4-35.0)
[2023-12-01 07:27] VITALS: BP 104/66
[2023-12-01 07:30] LABS: Glucose - Point of Care 152 mg/dl (70-99)
--- NOTE | 2023-12-01 08:11 | W.PN.CARDCBS ---
Addendum entered and electronically signed by Freddy Ortiz MD 12/01/23 09:06:
patient seen and examined
agree with FABIOLA Hyde's notes and assessment
agree with FABIOLA Hyde's plan
chest pain improved, taking first dose of imdur this morning
exam:
heent ncat
[id number] cor regular
lungs ctab
abd soft nt nd
no ext edema
aao x3
non focal neurologically
Assessment:
Presentation with exertional chest and arm discomfort
Elevated troponin
CAD
multiple prior PCI [facility] [facility]
CABG x4 with 2 proximal anastomosis (RIOS-LAD-D and Free Xlnytl-JR-RGC [100% occluded])� in 2004 at [facility]
s/p PCI of RCA 11/09/18
Cath 03/2019 with severe chilkat 3 vessel disease, patent RIOS to D3 to LAD, patent RCA stent, occluded radial to LCx/PDA, medically managed
s/p RCA PCI 05/2021
s/p NSTEMI, cath with restenosis of RCA s/p placement of multiple overlapping stents 03/2022
s/p CABG at [facility] with SVG off aorta to PDA and R PLB 02/01/23Paroxysmal Afib, seen post-op CABG 01/2023
HTN
Hyperlipidemia
DM 2
Diabetic neuropathy
PE s/p IVC filter in 2007
Tobacco use
History of medical/dietary noncompliance
Obesity
ECHO 05/22/23: EF 50%, trace MR, mild TR, PAP 28 mmHg, trace MI
CATH CONCLUSION 12/01/23:
1. Widely patent EQBW-LLQ-lpekuaes and sequential SVG-PDA-PLB. The right coronary artery is now found to be 100% occluded due to widely patent sequential SVG graft. The terminal obtuse marginal branch from the circumflex is also now noted to be
occluded. Diffuse atherosclerotic disease is noted in the mid circumflex and in the proximal LAD which may also contribute to anginal symptoms.
2. Preserved left ventricular systolic function
Plan:
-Patient with complex past cardiac history as above presents back to [facility] due to chest discomfort, concern for angina
-trop peaked at 0.358
-s/p cath 11/30 with new 100% RCA occlusion due to widely patient SVG graft. terminal OM branch from circ also now occluded.
-plan for medical managment. relative hypotension and bradycardia limiting factors. will continue coreg 3.125mg BID, norvasc 5mg daily. will add imdur 30mg daily and follow. could consider decreasing lisinopril dose if additional room for
antianginal needed. no objection to discharge today
-he had post op afib s/p CABG 01/2023. he remains on amiodarone 200mg daily at this time. no recurrences of afib noted. for now, continue. would consider discontinuing with OP monitor to reassess for afib recurrence
-check CVE
-continue asa, plavix, lipitor, zetia
-hgb stable at 11.1
-ambulate and reassess chest discomfort
-OP cardiac follow up arranged
-d/w nursing
Original Note:
Today's Communication / Plan
-
add imdur. could decrease lisinopril dose if needed for BP room
continue asa, plavix, lipitor, zetia, coreg, norvasc
consider monitor and possible DC amio as OP
ambulate
Impression / Plan
-
Primary Net Mender: Dr. Montoya
Assessment:
Presentation with exertional chest and arm discomfort
Elevated troponin
CAD
multiple prior PCI [facility]
CABG x4 with 2 proximal anastomosis (RIOS-LAD-D and Free Frrntp-IW-YPS [100% occluded])� in 2004 at [facility]
s/p PCI of RCA 11/09/18
Cath 03/2019 with severe chilkat 3 vessel disease, patent RIOS to D3 to LAD, patent RCA stent, occluded radial to LCx/PDA, medically managed
s/p RCA PCI 05/2021
s/p NSTEMI, cath with restenosis of RCA s/p placement of multiple overlapping stents 03/2022
s/p CABG at [facility] with SVG off aorta to PDA and R PLB 02/01/23
Paroxysmal Afib, seen post-op CABG 01/2023
HTN
Hyperlipidemia
DM 2
Diabetic neuropathy
PE s/p IVC filter in 2007
Tobacco use
History of medical/dietary noncompliance
Obesity
ECHO 05/22/23: EF 50%, trace MR, mild TR, PAP 28 mmHg, trace MI
CATH CONCLUSION 12/01/23:
1. Widely patent ITDH-SYT-dzsdpifw and sequential SVG-PDA-PLB. The right coronary artery is now found to be 100% occluded due to widely patent sequential SVG graft. The terminal obtuse marginal branch from the circumflex is also now noted to be
occluded. Diffuse atherosclerotic disease is noted in the mid circumflex and in the proximal LAD which may also contribute to anginal symptoms.
2. Preserved left ventricular systolic function
Plan:
-Patient with complex past cardiac history as above presents back to [facility] due to chest discomfort, concern for angina
-trop peaked at 0.358
-s/p cath 11/30 with new 100% RCA occlusion due to widely patient SVG graft. terminal OM branch from circ also now occluded.
-plan for medical managment. relative hypotension and bradycardia limiting factors. will continue coreg 3.125mg BID, norvasc 5mg daily. will add imdur 30mg daily and follow. could consider decreasing lisinopril dose if additional room for
antianginal needed
-he had post op afib s/p CABG 01/2023. he remains on amiodarone 200mg daily at this time. no recurrences of afib noted. for now, continue. would consider discontinuing with OP monitor to reassess for afib recurrence
-check CVE
-continue asa, plavix, lipitor, zetia
-hgb stable at 11.1
-ambulate and reassess chest discomfort
-OP cardiac follow up arranged
-d/w nursing
Progress Note - Net Mender
Subjective
Date of Service: December 01, 2023
remains with consistent mild chest pressure, states annoying. no SOB
Objective
Labs:
12/01/23 02:16
12/01/23 02:16
Labs
Hgb 11.1 g/dL (13.0-18.0) L 12/01/23 02:16
Hct 33.2 % (39.0-52.0) L 12/01/23 02:16
Plt Count 160 10^3/uL (130-400) 12/01/23 02:16
PT 14.8 Sec (11.4-14.6) H 11/29/23 13:54
INR 1.16 11/29/23 13:54
APTT 33.1 Sec (23.4-35.0) 12/01/23 02:16
Sodium 136 mmol/L (135-145) 12/01/23 02:16
Potassium 4.7 mmol/L (3.5-5.1) D 12/01/23 02:16
BUN 27 mg/dl (9-20) H 12/01/23 02:16
Creatinine 1.3 mg/dL (0.7-1.3) 12/01/23 02:16
Glucose 160 mg/dl (70-99) H 12/01/23 02:16
Troponins
11/29/23 11/29/23 11/30/23
13:54 22:43 03:57
Troponin I 0.095 H* 0.358 H* 0.210 H* D
11/30/23 11/30/23
09:31 12:22
Troponin I 0.131 H* D Cancelled
Vital Signs and I&O:
Vital Signs
Temp Pulse Resp BP Pulse Ox
97.8 F 55 18 110/76 96
12/01/23 07:25 12/01/23 07:25 12/01/23 07:25 12/01/23 02:07 12/01/23 07:25
Vital Signs
Temp Pulse Resp BP Pulse Ox
97.8 F 55 18 110/76 96
12/01/23 07:25 12/01/23 07:25 12/01/23 07:25 12/01/23 02:07 12/01/23 07:25
Intake & Output
11/29/23 11/30/23 12/01/23 12/02/23
07:59 07:59 07:59 07:59
Intake Total 118 / 118
Output Total 200 / 200
Balance 118 / -82 -200 / -200
Physical Exam
Physical Exam
GEN: No distress, awake, alert, oriented x3
HEENT: supple, anicteric, mmm, eomi
LUNGS: CTA B/L, no wheezes/rales
CV: Reg and glenn, S1/S2, no murmur
ABD: soft, BS+, NT/ND
EXT: No cyanosis, clubbing, edema
NEURO: Gross non-focal
SKIN: Warm, pink, dry. No rash. L groin site c/d/i, mild soreness to palpation noted
[2023-12-01] MEDS: PROTONIX 40 MG PO (09:13)
[2023-12-01] MEDS: ZESTRIL 40 MG PO (09:13)
[2023-12-01] MEDS: COREG 3.125 MG PO (09:13)
[2023-12-01] MEDS: PACERONE 200 MG PO (09:13)
[2023-12-01] MEDS: PLAVIX 75 MG PO (09:13)
[2023-12-01] MEDS: LIPITOR 80 MG PO (09:13)
[2023-12-01] MEDS: LYRICA 100 MG PO (09:13)
[2023-12-01] MEDS: THERAGRAN 1 TABLET PO (09:13)
[2023-12-01] MEDS: LOW STRENGTH ASPIRIN 81 MG PO (09:14)
[2023-12-01] MEDS: NOVOLOG FLEXPEN-MODERATE RESISTANCE SC (09:14)
[2023-12-01] MEDS: NORVASC 5 MG PO (09:14)
[2023-12-01] MEDS: ROXICODONE 5 MG PO ×2 (09:18→13:55)
[2023-12-01 09:57] LABS: HDL Cholesterol 43 mg/dl; LDL Cholesterol, Calculated 79 mg/dl; Total Cholesterol 161 mg/dl (50-199); Triglyceride 198 mg/dl (10-149); Very Low Density Lipoprotein 39 mg/dl (0-30)
--- NOTE | 2023-12-01 10:07 | PTCARENOTE ---
left groin tender to touch and painful for patient, patient requested pain medication, roxicodone po given as ordered. left groin intact, no hematoma, no ecchymosis, tender to touch, distal pulse palpable.
[2023-12-01 11:19] VITALS: BP 124/79
[2023-12-01] MEDS: IMDUR (EXTENDED RELEASE) 30 MG PO (11:48)
[2023-12-01 12:17] LABS: Glucose - Point of Care 219 mg/dl (70-99)
--- NOTE | 2023-12-01 12:29 | W.PN.HOSP.TC ---
Addendum entered and electronically signed by Rakesh Rios MD 12/01/23 16:11:
Tobacco cessation advised
[id number]
Addendum entered and electronically signed by Rakesh Rios MD 12/01/23 14:55:
Tolerating ambulation well after Imdur. Cardiology as well as myself clearing patient for discharge. Close follow-up with basket filler
Original Note:
Today's Communication/Plan
-
imdur initiation - titrate as needed
reduce lisinopril to 20mg daily
f/u cards, pcp outpatient
Assessment / Plan
Assessment / Plan
Physical Exam
General: Well Developed, Well Nourished, No Apparent Distress and Obese
HEENT: NormoCephalic and Anicteric
Respiratory: Clear
Cardiac: S1/S2 and Regular Rhythm
GI: Soft and Non Tender
Musculoskeletal: No Clubbing
Skin: Warm
Neuro: Awake, Alert, Oriented and AO x 3
Hematologic/Lymphatic: No Lymphadenopathy
Psych: Calm
62-year-old male with extensive cardiac history now presents for stable angina
#Chest pain
#NSTEMI
� [facility] 11/30: CATH CONCLUSION 12/01/23:
1. Widely patent [id number] and sequential SVG-PDA-PLB. The right coronary artery is now found to be 100% occluded due to widely patent sequential SVG graft. The terminal obtuse marginal branch from the circumflex is also now noted to be
occluded. Diffuse atherosclerotic disease is noted in the mid circumflex and in the proximal LAD which may also contribute to anginal symptoms.
2. Preserved left ventricular systolic function
#s/p Nitro, hep ggt
-Add imdur
-Can reduce ACEI to allow BP buffer
- Continue aspirin, Plavix, Lipitor, Coreg, Norvasc, lisinopril
� Follow-up echo: 50-55% by visual estimate. No gross regional wall motion abnormalities
�Educated on diet, cholesterol lowering diet
-LDL goal <55
-Glucose control
-On amio s/p CABG - no reccurences of Afib - reasonable to dc - can /fu outpatient
#headache
-2/2 to nitro
-Tylenol
-resolved s/p off nitro
History of complex CAD status post CABG x2, stents x14
- continue Coreg, statin, DAPT with aspirin and Plavix, ACEI
-see plan above
Paroxysmal atrial fibrillation
- continue Coreg/Amiodarone
- not on AC - defer to cards
-can consider dc amio outpatient - has been started s/p CABG it seems
#Hypomagnesemia
� Monitor and replete
History of pulmonary embolism with IVC filter in place ( 2007). Symptoms not c/w PE
#Type 2 diabetes baseline
-lantus
-AISS
- resume metformin at discharge.
-adjust as needed outpatient
Hypercholesterolemia, stable
- continue Zetia, statin
Neuropathy. Unchanged
- Continue pregabalin
Code: Full
More than 30 minutes spent in discharge including
Final examination of the patient
Summarizing hospital stay
Instructions for continuing care to all relevant caregivers
Preparation of discharge records, prescriptions, and referral forms
Total time spent (35 in minutes):
Anticipated Discharge: Today
Subjective/Interval History
-
Date of Service: December 01, 2023
no acute events; [facility] with no intervention yest
Objective Data
-
Labs:
Laboratory Results
12/01/23
02:16
WBC 6.7
Hgb 11.1 L
Hct 33.2 L
Plt Count 160
APTT 33.1
Sodium 136
Potassium 4.7 D
Chloride 101
Carbon Dioxide 27
BUN 27 H
Creatinine 1.3
Glucose 160 H
Calcium 8.9
Vital Signs:
Vital Signs
Temp Pulse Resp BP Pulse Ox
98.3 F 59 16 104/66 99
12/01/23 11:17 12/01/23 11:17 12/01/23 11:17 12/01/23 09:14 12/01/23 11:17
I&O
11/30/23 12/01/23 12/02/23
06:59 06:59 06:59
Intake Total 118 / 118
Output Total 200 / 200
Balance 118 / 118 -200 / -200
Review of Systems
-
History Source: Patient
All other systems: Not reviewed unless documented
Physical Exam
-
General: No Apparent Distress
HEENT: Normocephalic and Atraumatic
Respiratory: Negative Wheezes or Rales
Cardiac: Regular Rhythm and S1/S2
GI: Soft
Genito-urinary: No Costovertebral Tender
Musculoskeletal: No Edema
Neuro: AO x 3
Hematologic / Lymphatic: No Lymphadenopathy
Psych: Calm
Data Reviewed
-
Total Time Spent with Patient (in minutes): 40
Diagnostic Radiology: Image personally visualized and interpreted and Report Reviewed by me
Labs: Labs Reviewed by me
[2023-12-01] MEDS: NOVOLOG FLEXPEN-MODERATE RESISTANCE 3 UNITS SC (13:50)
--- NOTE | 2023-12-01 13:56 | PTCARENOTE ---
patient ambulated in replaced by [facility], [facility], well patient stated I still feel chest pressure. also c/o left groin pain Roxicodone po given as ordered.
[2023-12-01 14:09] VITALS: BP 111/78
--- NOTE | 2023-12-01 14:55 | W.DS.TRANS ---
DC Summary - [employer]
-
Discharge Instructions:
Discharge Diagnosis/Procedures cardiac catheterization
Angina
Diet Low Fiber,Low Cholesterol,Diabetic, Carb
Controlled
Activity As tolerated,No strenuous activity,Other
activity
Additional Activity As directed by cardiology
Blood Work Hemoglobin A1c, insulin titration as needed
Instructions:
Stand-Alone Forms: DC Instructions- Cath/EP Lab
Changes to Home Medications: Yes
Discharge Medications:
DC Medications w/original date entered in Door [facility]
clopidogrel 75 mg tablet 75 mg PO DAILY #30 tabs 11/09/18
atorvastatin 80 mg tablet 80 mg PO DAILY High cholesterol 03/20/19
aspirin 81 mg chewable tablet 81 mg PO DAILY ##30 03/22/19
therapeutic multivitamin 1 tab PO DAILY Supplement 04/03/22
metformin 500 mg tablet 1,000 mg PO BID@0800,1700 diabetes 01/18/23
omeprazole 20 mg tablet,delayed release 20 mg PO DAILY Gastrointestinal Issue 01/18/23
ezetimibe 10 mg tablet 10 mg PO HS High Cholesterol 01/20/23
amiodarone 200 mg tablet 200 mg PO DAILY Arrhythmia 05/21/23
amlodipine 5 mg tablet 5 mg PO DAILY Blood Pressure 05/21/23
insulin glargine 100 unit/mL subcutaneous solution (Lantus U-100 Insulin) 20 unit SC HS diabetes 05/21/23
carvedilol 3.125 mg tablet 3.125 mg PO BID #60 tabs 05/23/23
hydrocodone 5 mg-acetaminophen 300 mg tablet 1 tab PO BIDPRN PRN severe pain 11/29/23
pregabalin 100 mg capsule 100 mg PO BID Neurological Condition 11/29/23
isosorbide mononitrate 30 mg tablet,extended release 24 hr 30 mg PO DAILY 30 days #30 tabs 12/01/23
lisinopril 20 mg tablet 20 mg PO DAILY #30 tabs 12/01/23
oxycodone 5 mg tablet 5 mg PO Q4HPRN PRN severe pain 18 days #18 tabs 12/01/23
Home Medication Changes
isosorbide mononitrate 30 mg tablet,extended release 24 hr 30 mg PO DAILY 30 days #30 tabs 12/01/23
lisinopril 20 mg tablet 20 mg PO DAILY #30 tabs 12/01/23
oxycodone 5 mg tablet 5 mg PO Q4HPRN PRN severe pain 18 days #18 tabs 12/01/23
Pending Results: No
--- NOTE | 2023-12-01 15:19 | PTCARENOTE ---
D/C instructions given to patient , verbalizes understanding. INR x 2 D/C'd, telemetry d/C'd, personal belongings packed and sent home with patient. D/C to home via wc accompanied by staff.
== END 2023-12-01 16:16 | disposition home or self-care (01) | DRG 282 ==
LOC: IVU 17:09
PROVIDERS: Internal Medicine Interventional Cardiology; Physician Assistant; ADMITTING PHYSICIAN Internal Medicine; CONSULT PHYSICIAN Internal Medicine Cardiovascular Disease; EMERGENCY PHYSICIAN Student in an Organized Health Care Education/Training Program; FAMILY PHYSICIAN Family Medicine
PROC: B2181ZZ Fluoroscopy of Left Internal Mammary Bypass Graft using Low Osmolar Contrast (ICD-10-PCS; 2023-11-30)
PROC: 4A023N7 Measurement of Cardiac Sampling and Pressure, Left Heart, Percutaneous Approach (ICD-10-PCS; 2023-11-30)
PROC: B2131ZZ Fluoroscopy of Multiple Coronary Artery Bypass Grafts using Low Osmolar Contrast (ICD-10-PCS; 2023-11-30)
PROC: B2151ZZ Fluoroscopy of Left Heart using Low Osmolar Contrast (ICD-10-PCS; 2023-11-30)
PROC: B2111ZZ Fluoroscopy of Multiple Coronary Arteries using Low Osmolar Contrast (ICD-10-PCS; 2023-11-30)
DX: I21.4 Non-ST elevation (NSTEMI) myocardial infarction (principal); I25.118 Atherosclerotic heart disease of native coronary artery with other forms of angina pectoris; I48.0 Paroxysmal atrial fibrillation; E11.40 Type 2 diabetes mellitus with diabetic neuropathy, unspecified; E66.9 Obesity, unspecified; F17.200 Nicotine dependence, unspecified, uncomplicated; I10 Essential (primary) hypertension; Z95.1 Presence of aortocoronary bypass graft; Z95.5 Presence of coronary angioplasty implant and graft; Z79.82 Long term (current) use of aspirin; Z68.36 Body mass index [BMI] 36.0-36.9, adult; I25.2 Old myocardial infarction; Z79.4 Long term (current) use of insulin
CPT/HCPCS: 71045; 80048; 80053; 80061; 82962; 83036; 83735; 84484; 85014; 85018; 85025; 85027; 85610; 85730; 93005; 93306; 93459; 96374; 96375; 97162; 97165; 99291; C1760; C1894; Q9967

== ENCOUNTER 2024-10-01 10:33 | Emergency (ER) | payer BC, SELFPAY ==
[2024-10-01 10:37] VITALS: BP 166/96
--- NOTE | 2024-10-01 12:52 | ED.GENMED ---
History of Present Illness
General
Chief Complaint: Fall
Source: patient
Exam Limitations: none
Time Seen by Provider: 10/01/24 11:02
Nursing documentation reviewed up to this point in time: agreed with
History of Present Illness
History of Present Illness:
63-year-old male presenting to the emergency department today after slipping on steps landing directly on his left shoulder. Patient is a Plavix adamantly denies any head injury neck injury or any additional injuries otherwise.
Past History
Past History
ED Past Medical History: CAD (CABG, multiple stents (up to 14)), HTN, Hypercholesterolemia, NIDDM, NC and Other (Pulmonary embolus with IVC filter 2007)
ED Past Surgical History: Cardiac (CABG x4 2004, multiple PCI last occurring October 2018), Orthopedic and Other (IVC filter 2007)
Social History
Tobacco: Smoker
Alcohol: Occasional
Drug: None
Personal:
Living: with family
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
Family History
Family History: CAD
Review of Systems
Review of Systems
Allergies reviewed?: Yes
All Other Systems: ROS reviewed and negative except as documented in HPI and ROS
Phy Exam
Physical Exam
Physical Exam:
GENERAL: Alert , in no apparent distress
EYE: pupils equal and reactive
NECK: Supple, no significant adenopathy.
ENT: o/p clr, mmm.
CARDIAC: Regular rate and rhythm .
LUNGS: Clear breath sounds bilaterally, no acute respiratory distress, no wheezes/rales/rhonchi
ABDOMEN: Soft, without focal tenderness, no r/g, no cvat
NEUROLOGICAL: Alert and oriented, no focal neuro deficits
SKIN: Warm and dry, skin intact.
MUSCULOSKELETAL: disComfort to the left shoulder increased pain with any movement of the left shoulder, no redness or warmth no signs of deformity well perfused.
PSYCH: Normal and appropriate interaction.
Course
Orders/Labs/Results
Orders:
Orders
10/01/24 10:43
CR Shoulder, Trauma - Left Urgent
Comment:
Reason For Exam: Trauma
10/01/24 12:52
Sling Left-Treatment ONCE
Vital Signs
Initial and Last Documented VS:
Initial Vital Signs
Temp Pulse Resp BP Pulse Ox
97.9 F 82 16 166/96 100
10/01/24 10:37 10/01/24 10:37 10/01/24 10:37 10/01/24 10:37 10/01/24 10:37
Last Documented Vital Signs
Temp Pulse Resp BP Pulse Ox
97.9 F 82 16 166/96 100
10/01/24 10:37 10/01/24 10:37 10/01/24 10:37 10/01/24 10:37 10/01/24 10:37
MDM/Problems Addressed
MDM/Problems Addressed:
63-year-old male presenting to the emergency department with concerns of an injury to his left shoulder when slipping on ice this morning. Patient does take Plavix denies adamantly that he hit his head or loss consciousness no numbness weakness or
any additional issues. X-ray without obvious fracture patient placed in a sling with likely internal shoulder injury. Advised for close follow-up with Ortho return precautions given.
*Critical Care Note
Total Time (30-74mins, 75-104mins- exclusive of procedures): Not Applicable
ED Attending Note
-
Portions of this chart may have been created with voice recognition software.� Occasional wrong word or��sound alike� substitutions may have occurred due to the inherent limitations of voice recognition software.
Discharge Plan
Departure
Patient Disposition: Home (Routine Discharge)
Date of Disposition: 10/01/24
Time of Disposition: 12:56
Patient with high blood pressure during this ER visit?: No
Condition: Good
Covid-19: Not Applicable
Discharge Problem:
Shoulder sprain
Instructions: Shoulder Sprain (DC)
Prescriptions:
No Action
clopidogrel 75 MG tablet
75 mg PO DAILY Qty: 30 11RF
atorvastatin 80 MG tablet
80 mg PO DAILY
aspirin 81 MG tablet,chewable
81 mg PO DAILY Qty: 30 3RF
therapeutic multivitamin Tablet
1 tab PO DAILY
omeprazole 20 mg Tablet,Delayed Release (Dr/Ec)
20 mg PO DAILY
metformin 500 MG tablet
1,000 mg PO BID@0800,1700
ezetimibe 10 MG tablet
10 mg PO HS
amlodipine 5 mg tablet
5 mg PO DAILY
insulin glargine [Lantus U-100 Insulin] 100 unit/mL Solution
20 unit SC HS
amiodarone 200 mg Tablet
200 mg PO DAILY
carvedilol 3.125 mg Tablet
3.125 mg PO BID Qty: 60 0RF
hydrocodone-acetaminophen 5-300 mg Tablet
1 tab PO BIDPRN PRN (Reason: severe pain)
pregabalin 100 mg capsule
100 mg PO BID
isosorbide mononitrate 30 mg Tablet Extended Release 24 Hr
30 mg PO DAILY 30 Days Qty: 30 0RF
lisinopril 20 mg tablet
20 mg PO DAILY Qty: 30 0RF
oxycodone 5 mg Tablet
5 mg PO Q4HPRN PRN (Reason: severe pain) 18 Days Qty: 18 0RF
Referrals:
Gregory Holland MD [Active] - Follow up in 5-7 days
Aury Cervantes DO [Family Provider] -
Activity Restrictions/Additional Instructions:
You came to the emergency department today with concerns of a shoulder injury. Please wear the sling and follow-up closely with Ortho for further assessment. Return for any worsening, new or concerning symptoms.
Discharge Date and Time
Print Language: ANDORRAN
[2024-10-01] MEDS: PERCOCET 5/325 2 TABLET PO (13:19)
== END 2024-10-01 13:00 | disposition home or self-care (01) ==
LOC: EMR 10:33
PROVIDERS: EMERGENCY PHYSICIAN Student in an Organized Health Care Education/Training Program; FAMILY PHYSICIAN Family Medicine
DX: S43.402A Unspecified sprain of left shoulder joint, initial encounter (principal); W00.0XXA Fall on same level due to ice and snow, initial encounter; I25.10 Atherosclerotic heart disease of native coronary artery without angina pectoris; E78.00 Pure hypercholesterolemia, unspecified; E11.9 Type 2 diabetes mellitus without complications; I25.2 Old myocardial infarction; I10 Essential (primary) hypertension; F17.200 Nicotine dependence, unspecified, uncomplicated; Z86.711 Personal history of pulmonary embolism; Z95.5 Presence of coronary angioplasty implant and graft; Z95.1 Presence of aortocoronary bypass graft; Z79.02 Long term (current) use of antithrombotics/antiplatelets
CPT/HCPCS: 99283; 73030

== ENCOUNTER → 2024-10-20 16:12 | Outpatient (REF) | payer BC, SELFPAY ==
[2024-10-20 17:38] LABS: % Basophils 0.8 % (0-2); % Eosinophils 1.8 % (0-6); % Immature Granulocytes 0.6 % (0-0.5); % Lymphocytes 16.4 % (20.5-51.1); % Monocytes 7.1 % (1.7-9.3); % Neutrophils 73.3 % (42.2-75.2); Absolute Basophils 0.1 10^3/uL (0-0.2); Absolute Eosinophils 0.2 10^3/uL (0-0.7); Absolute Immature Granulocytes 0.1 10^3/uL (0-0.05); Absolute Lymphocytes 1.7 10^3/uL (1.2-3.4); Absolute Monocytes 0.8 10^3/uL (0.1-0.6); Absolute Neutrophils 7.8 10^3/uL (1.4-6.5); Hematocrit 40.2 % (39.0-52.0); Mean Corp Hgb Conc. 32.3 g/dL (33.0-37.0); Mean Corpuscular Hgb 28.5 pg (27.0-31.0); Mean Corpuscular Volume 88.2 fL (80.0-94.0); Mean Platelet Volume 11.2 fL (7.4-10.4); Nucleated Red Blood Cells % 0 % (-); Platelet Count 229 10^3/uL (130-400); Red Blood Cell Count 4.56 10^6/uL (4.70-6.10); Red Cell Dist. Width 14.3 % (11.5-14.5); White Blood Cell Count 10.6 10^3/uL (4.8-10.8)
[2024-10-20 17:53] LABS: ALT (SGPT) 23 U/L (0-50); AST (SGOT) 17 U/L (17-59); Albumin 4.1 g/dl (3.5-5.0); Alkaline Phosphatase 85 U/L (38-126); Amylase 61 U/L (30-110); Direct Bilirubin 0.2 mg/dl (0.0-0.4); Lipase 116 U/L (23-300); Total Bilirubin 0.5 mg/dl (0.2-1.3); Total Protein 6.7 g/dl (6.3-8.2)
[2024-10-20 18:01] LABS: IgA 118 mg/dl (70-400)
[2024-10-23 02:04] LABS: tTG IgA Antibody <1.02 FLU (0.00-4.99)
== END ==
LOC: REG 16:12
PROVIDERS: ATTENDING PHYSICIAN Internal Medicine Gastroenterology; FAMILY PHYSICIAN Family Medicine
DX: R10.13 Epigastric pain (principal)
CPT/HCPCS: 36415; 80076; 82150; 82784; 83690; 85025; 86364

== ENCOUNTER → 2024-11-05 07:20 | Outpatient (REF) | payer BC, SELFPAY | LOC: RAD 07:20 | PROVIDERS: ATTENDING PHYSICIAN Internal Medicine Gastroenterology; FAMILY PHYSICIAN Family Medicine | DX: R10.13 Epigastric pain (principal) | CPT/HCPCS: 76700 ==

== ENCOUNTER → 2025-02-11 09:12 | Outpatient (REF) | payer BC, SELFPAY ==
[2025-02-11 10:10] LABS: % Basophils 1.2 % (0-2); % Eosinophils 3.6 % (0-6); % Immature Granulocytes 0.4 % (0-0.5); % Lymphocytes 21.2 % (20.5-51.1); % Monocytes 7.3 % (1.7-9.3); % Neutrophils 66.3 % (42.2-75.2); Absolute Basophils 0.1 10^3/uL (0-0.2); Absolute Eosinophils 0.3 10^3/uL (0-0.7); Absolute Lymphocytes 1.8 10^3/uL (1.2-3.4); Absolute Monocytes 0.6 10^3/uL (0.1-0.6); Absolute Neutrophils 5.6 10^3/uL (1.4-6.5); Hematocrit 38.3 % (39.0-52.0); Hemoglobin 12.6 g/dL (13.0-18.0); Mean Corp Hgb Conc. 32.9 g/dL (33.0-37.0); Mean Corpuscular Volume 88.2 fL (80.0-94.0); Mean Platelet Volume 11.7 fL (7.4-10.4); Nucleated Red Blood Cells % 0 % (-); Platelet Count 206 10^3/uL (130-400); Red Blood Cell Count 4.34 10^6/uL (4.70-6.10); Red Cell Dist. Width 13.1 % (11.5-14.5); White Blood Cell Count 8.4 10^3/uL (4.8-10.8)
[2025-02-11 10:30] LABS: Glycohemoglobin (HgbA1c) 6.7 % (4.0-5.6)
[2025-02-11 10:52] LABS: ALT (SGPT) 18 U/L (0-50); AST (SGOT) 19 U/L (17-59); Albumin 4.4 g/dl (3.5-5.0); Alkaline Phosphatase 83 U/L (38-126); Blood Urea Nitrogen 31 mg/dl (9-20); Calcium 9.5 mg/dl (8.4-10.2); Carbon Dioxide 26 mmol/L (22-30); Chloride 107 mmol/L (98-107); Glucose 115 mg/dl (70-99); HDL Cholesterol 34 mg/dl; LDL Cholesterol, Calculated 81 mg/dl; Potassium 4.8 mmol/L (3.5-5.1); Sodium 142 mmol/L (135-145); Total Bilirubin 0.5 mg/dl (0.2-1.3); Total Cholesterol 150 mg/dl (50-199); Total Protein 6.9 g/dl (6.3-8.2); Triglyceride 177 mg/dl (10-149); Very Low Density Lipoprotein 35 mg/dl (0-30); eGFR > 60.00
[2025-02-11 11:21] LABS: TSH Reflex To Free T4 3.48 uIU/ml (0.47-4.68)
== END ==
LOC: REG 09:12
PROVIDERS: ATTENDING PHYSICIAN Family Medicine
DX: E78.00 Pure hypercholesterolemia, unspecified (principal); I10 Essential (primary) hypertension; E11.59 Type 2 diabetes mellitus with other circulatory complications; E78.5 Hyperlipidemia, unspecified; E66.01 Morbid (severe) obesity due to excess calories
CPT/HCPCS: 36415; 80053; 80061; 83036; 84443; 85025